=== PATIENT | male | born 1980 | race Two or more races ===

== ENCOUNTER 2017-06-14 07:36 | Emergency (ER) | payer SELFPAY ==
[~2017-06-14] VITALS: Ht 177.8 cm; Wt 94.5 kg
[2017-06-14 07:40] VITALS: BP 138/92
[2017-06-14] MEDS ORDERED: TYLENOL WITH C1 EACH PO (11:05)
== END 2017-06-14 11:23 | disposition home or self-care (01) ==
LOC: EME 07:36
DX: S40.012A Contusion of left shoulder, initial encounter (principal); X50.9XXA Other and unspecified overexertion or strenuous movements or postures, initial encounter; Y93.68 Activity, volleyball (beach) (court)
CPT/HCPCS: 71020; 73030; 99281; 99283